=== PATIENT | female | born 1975 | race Caucasian/White ===

== ENCOUNTER 2019-12-26 13:42 | Emergency (ER) | payer OTHER, SELFPAY ==
--- NOTE | 2019-12-26 13:45 | ED.GENADULT ---
HPI - General Adult General Chief complaint: Ear Stated complaint: right ear pain Time Seen by Provider: 12/26/19 14:10 Source: patient Mode of arrival: ambulatory Limitations: no limitations History of Present Illness HPI narrative: 44-year-old female patient [facility] with complaints of right ear pain and decreased hearing for the past 2 days. Patient denies any fevers, runny nose, stuffy nose, coughing, chest pain, shortness breath, abdominal pain, nausea, vomiting or diarrhea. Patient denies taking anything for her symptoms so far. Related Data Home Medications Medication Instructions Recorded Confirmed aripiprazole 2 mg PO DAILY 12/26/19 12/26/19 hydroxyzine HCl 25 mg PO BID 12/26/19 12/26/19 propranolol 60 mg PO Q12H 12/26/19 12/26/19 sertraline 150 mg PO DAILY 12/26/19 12/26/19 Allergies Allergy/AdvReac Type Severity Reaction Status Date / Time cephalexin AdvReac Unknown Nausea and Verified 12/26/19 13:57 Vomiting Review of Systems Review of Systems: Narrative: CONSTITUTIONAL: Denies fever, chills, or sweats. EYES: Denies visual changes, redness, or discharge. ENT: Denies rhinorrhea, congestion, sore throat, positive right otalgia. CARDIOVASCULAR: Denies chest pain, palpitations, or edema. RESPIRATORY: Denies cough or dyspnea. GASTROINTESTINAL: Denies abdominal pain, nausea, vomiting, or diarrhea. GENITOURINARY: Denies dysuria or hematuria. SKIN: Denies rash or itching. MUSCULOSKELETAL: Denies back pain, joint pain, or myalgia. NEUROLOGIC: Denies headache, numbness, or weakness. PSYCHIATRIC: Denies anxiety or depression. PMFSH Comments At the time of my signature I agree with nursing past medical history, surgical, social, and family history. There is no relevant family history pertinent to the presenting complaint. Exam Narrative: Exam Narrative: GENERAL: Well-appearing, well-nourished, and in no acute distress. HEAD: Normocephalic, atraumatic. EYES: PERRLA and EOMI. ENT: Nares with erythema and edema noted bilaterally with the left nare swollen shut, no rhinorrhea or epistaxis. Mucous membranes moist. Right ear has some erythema noted to the TM. No foreign bodies noted to the canal. Posterior pharynx no erythema, tonsillar margin, exudates or lesions present. NECK: Supple. No lymphadenopathy CHEST: Clear to auscultation. No respiratory distress. HEART: Regular rate and rhythm. No murmur heard. Normal peripheral pulses. ABDOMEN: Soft, nontender, nondistended, normal active bowel sounds. EXTREMITIES: Normal range of motion. No edema. SKIN: Warm, dry, no rash. NEURO: No focal deficits. Alert and oriented x3. Course Vital Signs Vital signs: Vital Signs Temperature 36.6 C 12/26/19 13:52 Pulse Rate 76 12/26/19 13:52 Respiratory Rate 16 12/26/19 13:52 Blood Pressure 124/74 12/26/19 13:52 Pulse Oximetry 99 12/26/19 13:52 Temperature 36.6 C 12/26/19 13:52 Pulse Rate 76 12/26/19 13:52 Respiratory Rate 16 12/26/19 13:52 Blood Pressure 124/74 12/26/19 13:52 Pulse Oximetry 99 12/26/19 13:52 Medical Decision Making Differential Diagnosis Differential Diagnosis: Differential diagnosis: Otitis media, otitis externa, perforated TM, infection of the outer ear, foreign body or cerumen impaction, ruptured TM, acute mastoiditis, ligament otitis externa, dehydration, pneumonia, sepsis, dental or intraoral infection, TMJ dysfunction Discussed with patient it looks like that she has beginnings of an ear infection to the right ear which is most likely causing her symptoms. Discussed with her that this could be due to clogged sinuses due to the fact that her nares do appear slightly swollen. Notify patient that I will discharge her home with an antibiotic for the ear infection but she should also be taking some to antihistamine such as Natasha, Zyrtec or Claritin as well as Flonase for her symptoms as well to decrease risk of ear infection in the future.
[2019-12-26 13:52] VITALS: BP 124/74; PULSE 76; RESP 16; TEMP 36.6; O2SAT 99
== END 2019-12-26 14:20 | disposition home or self-care (01) ==
PROVIDERS: Emergency Provider Nurse Practitioner Family
DX: H66.91 Otitis media, unspecified, right ear (principal); J30.9 Allergic rhinitis, unspecified; F41.9 Anxiety disorder, unspecified; F32.9 Major depressive disorder, single episode, unspecified
CPT/HCPCS: 99213; G0463

== ENCOUNTER 2022-10-10 16:39 | Emergency (ER) | payer OTHER, SELFPAY ==
[2022-10-10 16:47] VITALS: BP 117/68; PULSE 67; RESP 16; TEMP 36.7; O2SAT 97
--- NOTE | 2022-10-10 16:51 | ED.URI ---
HPI - URI/Sore Throat General Chief Complaint: Upper Respiratory Infection Stated Complaint: sore throat and right ear Time Seen by Provider: 10/10/22 16:51 Source: patient and RN notes reviewed History of Present Illness HPI Narrative: patient is a 46-year-old female who presents to urgent care with complaints of right otalgia and sore throat. Patient states that she has had some ringing and muffled miss and the right ear. Patient states it started 1 week ago and did initially have a fever. Patient has been fever free for the last 7 days. States her 3-year-old grandson was seen in the emergency room today for an upper respiratory virus . He had no diagnoses that required antibiotics. Patient has been using Tylenol. No other acute complaints. No acute distress noted. Patient aware of the plan of care. Some parts of this dictation were generated by voice recognition software and may contain typographical and/or grammatical inaccuracies. Related Data Home Medications Medication Instructions Recorded Confirmed hydroxyzine HCl 25 mg tablet 25 mg PO BID 12/26/19 12/26/19 propranolol 60 mg tablet 60 mg PO Q12H 12/26/19 12/26/19 sertraline 100 mg tablet 150 mg PO DAILY 12/26/19 12/26/19 Allergies Allergy/AdvReac Type Severity Reaction Status Date / Time cephalexin AdvReac Unknown Nausea and Verified 10/10/22 16:53 Vomiting Review of Systems Review of Systems: CONSTITUTIONAL: Denies fever, chills, or sweats. EYES: Denies visual changes, redness, or discharge. ENT: reports right otalgia and sore throat CARDIOVASCULAR: Denies chest pain, palpitations, or edema. RESPIRATORY: Denies cough or dyspnea. GASTROINTESTINAL: Denies abdominal pain, nausea, vomiting, or diarrhea. GENITOURINARY: Denies dysuria or hematuria. SKIN: Denies rash or itching. MUSCULOSKELETAL: Denies back pain, joint pain, or myalgia. NEUROLOGIC: Denies headache, numbness, or weakness. All other systems reviewed are negative, except as documented in HPI. PMFSH Comments At the time of my signature, I reviewed and agree with the nursing past medical, surgical, social, and family history. There is no relevant family history pertinent to the patient complaint. Exam Narrative: GENERAL: This is a well-nourished, well-developed patient, in no apparent distress. HEAD: normocephalic, atraumatic. EYES: PERRL. Sclera clear/white. Vision is grossly intact. EARS: External ears normal, auditory canals clear and without drainage, mild bilateral eustachian tube dysfunction without otitis.TMs normal without perforation. Hearing grossly intact. NOSE: External nose normal with no obvious nasal discharge, nares without redness, no rhinorrhea. THROAT: Mucous membranes moist, posterior pharynx clear. Moderate postnasal drainage NECK: Neck supple, non-tender without lymphadenopathy CARDIOVASCULAR: Regular rate and rhythm without murmurs, gallops, or rubs. RESPIRATORY: Clear to auscultation. Breath sounds equal bilaterally. No wheezes, rales, or rhonchi. SKIN: warm, intact with no suspicious lesions or rash, good texture and turgor. NEURO: awake, alert, and oriented to person, place and time. There were no obvious focal neurologic abnormalities. EXTREMITIES: No clubbing, cyanosis, or edema. Course Course Level of Care: Express Care Visit Vital Signs Vital signs: Vital Signs Temperature 98.0 F 10/10/22 16:47 Pulse Rate 67 10/10/22 16:47 Respiratory Rate 16 10/10/22 16:47 Blood Pressure 117/68 10/10/22 16:47 Pulse Oximetry 97 10/10/22 16:47 Oxygen Delivery Room Air 10/10/22 16:47 Temperature 98.0 F 10/10/22 16:47 Pulse Rate 67 10/10/22 16:47 Respiratory Rate 16 10/10/22 16:47 Blood Pressure 117/68 10/10/22 16:47 Pulse Oximetry 97 10/10/22 16:47 Oxygen Delivery Room Air 10/10/22 16:47 reviewed MDM - URI/Sore Throat MDM Narrative Medical decision making narrative: Advised patient to take a daily Zyrtec or Clar
== END 2022-10-10 17:11 | disposition home or self-care (01) ==
PROVIDERS: Emergency Provider Nurse Practitioner Family; PCP Family Medicine
DX: H93.11 Tinnitus, right ear (principal); F41.9 Anxiety disorder, unspecified; F32.A Depression, unspecified; R73.03 Prediabetes; Z90.711 Acquired absence of uterus with remaining cervical stump
CPT/HCPCS: 99211; G0463

== ENCOUNTER 2023-08-08 13:26 | Emergency (ER) | payer OTHER, SELFPAY ==
[2023-08-08 13:35] VITALS: BP 117/83; PULSE 77; RESP 16; TEMP 36.5; O2SAT 98
--- NOTE | 2023-08-08 13:41 | ED.SKABFB ---
HPI - Skin/Abscess/Foreign Bdy General Chief complaint: Skin/Abscess/Foreign Body Stated complaint: wound on right butt cheek Time Seen by Provider: 08/08/23 13:26 Source: patient Mode of arrival: ambulatory Limitations: no limitations History of Present Illness HPI narrative: Giselle is a 47-year-old female patient presenting to the clinic today with complaints of a wound to the right by cheek. She reports that this been going on for a couple days. States she is having pain to the wound. States she was concerned that it may have been shingles however it is not spread. Wound is scabbed over and painful. No fever or chills. Related Data Home Medications Medication Instructions Recorded Confirmed hydroxyzine HCl 25 mg tablet 25 mg PO BID 12/26/19 08/08/23 propranolol 60 mg tablet 60 mg PO Q12H 12/26/19 08/08/23 sertraline 100 mg tablet 150 mg PO DAILY 12/26/19 10/10/22 Allergies Allergy/AdvReac Type Severity Reaction Status Date / Time cephalexin AdvReac Unknown Nausea and Verified 08/08/23 13:42 Vomiting Review of Systems Review of Systems: Pertinent positives per HPI. Patient denies any fever, chills, rash, headache, visual changes, dizziness, cough, runny nose, sore throat, shortness of breath, chest pain, palpitations, nausea, vomiting, diarrhea, constipation, abdominal pain, or any urinary issues. PMFSH Comments At the time of my signature, I reviewed and agree with the nursing past medical, surgical, social, and family history. There is no relevant family history pertinent to the patient complaint. Exam Narrative: General: Well-developed, well nourished, in no apparent distress Head: Normocephalic, atraumatic. Cardio: Regular rate and rhythm, s1 and s2 normal, no murmur appreciated. Resp: Clear to auscultation bilaterally, no rhonchi, rales, wheezing or rubs. Integumentary: [place], warm, and dry, half dollar size redness with scabbed center with yellow crusting, tender to palpation with mild induration Course Course Emergency Course: Portions of this record may have been created with voice recognition software. Level of Care: Express Care Visit Vital Signs Vital signs: Vital Signs Temperature 36.5 C 08/08/23 13:35 Pulse Rate 77 08/08/23 13:35 Respiratory Rate 16 08/08/23 13:35 Blood Pressure 117/83 08/08/23 13:35 Pulse Oximetry 98 08/08/23 13:35 Oxygen Delivery Room Air 08/08/23 13:35 Temperature 36.5 C 08/08/23 13:43 Pulse Rate 77 08/08/23 13:43 Respiratory Rate 16 08/08/23 13:43 Blood Pressure 117/83 08/08/23 13:43 Pulse Oximetry 98 08/08/23 13:43 Oxygen Delivery Room Air 08/08/23 13:43 Vital signs reviewed MDM - Skin/Abscess/Foreign Bdy MDM Narrative Medical decision making narrative: At the time of visit patient is resting comfortably on the exam table. I suspect patient may have a bacterial skin infection to the right buttock. Prescription for mupirocin cream and doxycycline was sent to the pharmacy and supportive measures were discussed with the patient she voiced understanding discharge instructions and agrees to treatment plan. Differential Diagnosis Differential diagnosis: Likely abscess of skin or subcutaneous tissue, viral exanthem, dermatophytosis, urticaria, herpes zoster, cellulitis, eczema, insect bites, impetigo and contact dermatitis Discharge Plan Discharge Clinical Impression: Bacterial infection of skin Patient Disposition: Home, Self-Care Condition: Stable Instructions: Antibiotic Form, Wound Infection (ED) Additional Instructions: Apply mupirocin cream to the affected area twice daily x7 days Take doxycycline as prescribed Keep wound clean and dry Watch for signs and symptoms of infection- redness, streaking, swelling, purulent discharge, or increase in pain. Follow up with your PCP for suture removal or return to the Express care. Prescriptions: New doxycycline hyclate 100 mg capsule
[2023-08-08 13:43] VITALS: BP 117/83; PULSE 77; RESP 16; TEMP 36.5; O2SAT 98
== END 2023-08-08 13:56 | disposition home or self-care (01) ==
PROVIDERS: Emergency Provider Nurse Practitioner Family
DX: L08.9 Local infection of the skin and subcutaneous tissue, unspecified (principal); B96.89 Other specified bacterial agents as the cause of diseases classified elsewhere; R73.03 Prediabetes; Z90.711 Acquired absence of uterus with remaining cervical stump; F41.9 Anxiety disorder, unspecified
CPT/HCPCS: 99213; G0463

== ENCOUNTER 2025-09-10 14:25 | Emergency (ER) | payer OTHER, SELFPAY ==
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
--- OUTSIDE RECORDS SUMMARY | 2025-09-10 14:28 | XMS_ITS | Encounter Summary ---
Author Organization [facility] Address [address] [place] [address] Phone Care Team Providers Care Logging Truck Driver Name Role Phone Neli Luis Primary Care Provider + Princess Washington MD Unavailable + [phone] Trip Lofton MD Unavailable Reason for Visit * Reason Comments Medication Refill Encounter Details Date Type Department Care Team (Late st Contact Info) Description 12/03/2023 Refill [facility] - [facility] [address] [place] [address] Neli Luis PAC [address] [place] [address] Medication Refill Social History Tobacco Use Types Packs/Day Years Used Date Smoking Tobacco: Never Smokeless Tobacco: Never Alcohol Use Standard Drinks/Week Comments Never 0 (1 standard drink = 0.6 oz pur e alcohol) Sexually Active Control Partners Comments Yes Male Comments Unknown Sex and Gender Information Value Date Recorded Sex Assigned at Female 10/05/2023 2:47 AM CREATIVE PERFUMER Legal Sex Female 9:41 AM CREATIVE PERFUMER Gender Identity Female 10/05/2023 2:47 AM CREATIVE PERFUMER Sexual Orientation Straight 10/05/2023 2: 47 AM CREATIVE PERFUMER documented as of this encounter Miscellaneous Notes * Telephone Encounter - Sara Sanchez RN - 12/03/2023 1:57 PM CDT Propranolol 60 mg is also on med list from 2019 - if this is not current, please discontinue. Per nursing clinical judgement, provider to review and approve the medication(s) order(s) if appropriate. Requested Prescriptions Pending Prescriptions Disp Refills propranolol (INDERAL) 40 MG Tablet [Pharmacy Med Name: PROPRANOLOL HCL 40MG TABS] 180 Tablet 0 Sig: TAKE ONE TABLET BY MOUTH EVERY MORNING AND AT BEDTIME Beta-Blockers Protocol Passed - 12/03/2023 10:19 AM Passed - BP on record in the past year Clinician-entered: BP Readings from Last 3 Encounters: 09/30/23 112/76 11/07/18 110/60 Patient-entered: No data recorded Passed - Visit with relevant provider in past 12 months or upcoming 90 days Recent Visits Date Type Provider Dept 09/30/23 Office Visit Neli Luis PAC [facility] Showing recent visits within past 365 days and meeting all other requirements Future Appointments No visits were found meeting these conditions. Showing future appointments within next 90 days and meeting all other requirements documented in this encounter Plan of Treatment Upcoming Encounters Date Type Department Care Team (Late st Contact Info) Description 10/04/2025 4:40 PM CREATIVE PERFUMER Office Visit [facility] - Family Medicine [facility] [address] [place] [address] Neli Luis PAC [address] [place] [address] documented as of this encounter Visit Diagnoses Not on filedocumented in this encounter Additional Health Concerns Infection Onset Date Last Indicated Resolved Time Respiratory Rule-Out 12/27/2023 12/27/2023 024 5:36 PM CDT COVID - 19 12/27/2023 12/27/2023 12/27/2023 5:33 PM CDT documented as of this encounter Care Teams Logging Truck Driver Relationship Specialty Start Date End Date Neli Luis PAC [address] [place] [address] PCP - General Physician Can Line Operator 09/30/23 Princess Washington MD [address] [place] [address] Family Medicine 09/30/23 Trip Lofton MD [address] [address] Consulting Physician Colon and Rectal Surgery 10/22/23 documented as of this encounter
--- OUTSIDE RECORDS SUMMARY | 2025-09-10 14:28 | XMS_ITS | Encounter Summary ---
Author Organization [facility] Address [address] [place] [address] Phone Care Team Providers Care Plumber Maintenance Name Role Phone Neli Luis Primary Care Provider + Princess Washington MD Unavailable [phone] Trip Lofton MD Unavailable Encounter Details Date Type Department Care Team (Late st Contact Info) Description 06/08/2025 Telephone [facility] Mammography [address] [place] [address] Neli Luis, PAC [address] [place] [address] Social History Tobacco Use Types Packs/Day Years Used Date Smoking Tobacco: Never Smokeless Tobacco: Never Alcohol Use Standard Drinks/Week Comments Never 0 (1 standard drink = 0.6 oz pur e alcohol) PHQ-2 Answer Date Recorded Total Score - Questions 1-9 0 09/0 11/2024 Sexually Active Control Partners Comments Yes Male Comments Unknown Sex and Gender Information Value Date Recorded Sex Assigned at Female 10/05/2023 2:47 AM TREASURY CONSULTANT Legal Sex Female 9:41 AM TREASURY CONSULTANT Gender Identity Female 10/05/2023 2:47 AM TREASURY CONSULTANT Sexual Orientation Straight 10/05/2023 2: 47 AM TREASURY CONSULTANT documented as of this encounter Miscellaneous Notes * Telephone Encounter - Ximena Yang RMA - 06/08/2025 9:11 AM CDT Patient is going to [facility] to have her mammogram as we cannot schedule here at this time. Orders have been faxed, her imaging is already there at that facility to compare. documented in this encounter Plan of Treatment Upcoming Encounters Date Type Department Care Team (Late st Contact Info) Description 10/04/2025 4:40 PM TREASURY CONSULTANT Office Visit [facility] - Family Medicine - [place] [facility] [address] [place] [address] Neli Luis PAC [address] [place] [address] documented as of this encounter Visit Diagnoses Not on filedocumented in this encounter Additional Health Concerns Assessment Noted Time PHQ-9 Depression Total Score: 0 05/25/20 25 9:34 AM CDT documented as of this encounter Care Teams Plumber Maintenance Relationship Specialty Start Date End Date Neli Luis PAC [address] [place] [address] PCP - General Physician Construction Controller 09/30/23 Princess Washington MD [address] [place] [address] [address] [place] [address] Family Medicine 09/30/23 Trip Lofton MD [address] [facility] [address] [place] [address] Consulting Physician Colon and Rectal Surgery 10/22/23 documented as of this encounter
--- OUTSIDE RECORDS SUMMARY | 2025-09-10 14:28 | XMS_ITS | Clinical Summary ---
Author Organization [facility] Address [address], [facility] [address] Phone Care Team Providers Care Catalyst Plant Supervisor Name Role Phone Neli Luis FERMIN Primary Care Provider + Princess Washington MD Unavailable + [phone] Trip Lofton MD Unavailable Allergies Active Allergy Reactions Criticality Noted Date Comments Cephalexin Vomiting 11/07/2018 Medications sertraline (ZOLOFT) 100 MG Tablet Patient takes 200mg twice a day 4 Active ibuprofen (MOTRIN) 800 MG Tablet Take 800 mg by mouth every 6 hours. Active hydrOXYzine (VISTARIL) 50 MG Capsule Take 1 Capsule by mouth in the morning and at bedtime. 180 Capsule 1 4 Active propranolol (INDERAL) 40 MG Tablet Take 1 Tablet by mouth 2 times daily. 180 Tablet 1 5 Active ondansetron (ZOFRAN-ODT) 8 MG TABLET DISPERSIBLE Take 1 Tablet by mouth every 8 hours as needed for Nausea - 1st line. 15 Tablet 5 Active Blood Glucose Monitoring Suppl DeviceIndicatio ns:Type 2 diabetes mellitus without complication, without long-term current use of insulin Diagnosis: Diabetes type 2 Blood testing frequency: once a day 1 Each 5 Active Lancets MiscIndications :Type 2 diabetes mellitus without complication, without long-term current use of insulin Once daily 100 Lancet . 10/02/202 5 Active glucose blood (Glucose Meter Test) StripIndication s:Type 2 diabetes mellitus without complication, without long-term current use of insulin Test once daily 90 Strip 3 Active Dulaglutide (Trulicity) 1.5 MG/0.5ML Solution Auto-injectorIn dications:Type 2 diabetes mellitus without complication, without long-term current use of insulin 1.5 mg by Subcutaneous route once a week. 2 mL Active Active Problems Problem Noted Date Diagnosed Date Type 2 diabetes mellitus wit hout complication, without long-term current use of insulin 06/23/2025 Encounters Date Type Department Care Team Description 06/23/2025 4:40 PM CDT Office Visit [facility] [address] [place] [address] Neli Luis, FERMIN Type 2 diabetes mellitus without complication, without long-term current use of insulin (Primary Dx) Discharge Disposition: Discharged to home or Selfcare 06/23/2025 Travel from Last 3 Months Immunizations Immunization Administration Dates Next Due Influenza Vaccine, Quadrivalent, PF 07/17/2018 Influenza, Injectable, Quadrivalent 10/10/2016 TDAP Vaccine 06/01/2024 Family History Medical History Relation Name Comments Cirrhosis Father Leukemia/Lymphoma Father Breast Cancer Maternal Aunt Breast Cancer Paternal Grandmother Relation Name Status Comments Father Maternal Aunt Alive Mother Alive Paternal Grandmother Social History Tobacco Use Types Packs/Day Years Used Date Smoking Tobacco: Never Smokeless Tobacco: Never Tobacco Cessation:Counseling Given: Not Answered Alcohol Use Standard Drinks/Week Comments Never 0 (1 standard drink = 0.6 oz pur e alcohol) PHQ-2 Answer Date Recorded Total Score - Questions 1-9 0 09/0 11/2024 Sexually Active Control Partners Comments Yes Male Comments Unknown Sex and Gender Information Value Date Recorded Sex Assigned at Female 10/05/2023 2:47 AM DATA INTEGRATION ANALYST Legal Sex Female 9:41 AM DATA INTEGRATION ANALYST Gender Identity Female 10/05/2023 2:47 AM DATA INTEGRATION ANALYST Sexual Orientation Straight 10/05/2023 2: 47 AM DATA INTEGRATION ANALYST Last Filed Vital Signs Vital Sign Reading Time Taken Comments Blood Pressure 118/70 06/23/2025 4:25 PM CDT Pulse 83 06/23/2025 4:25 PM CDT Temperature 36.6 C (97.8 F) 06/23/2025 4:25 PM CDT Respiratory Rate 18 06/01/2024 3:47 PM CDT Oxygen Saturation 96% 06/23/2025 4:25 PM CDT Inhaled Oxygen Concentration - - Weight 106.6 kg (235 lb) 06/23/2025 4:25 PM CDT Height 172.7 cm (5' 8) 06/23/2025 4:25 PM CDT Body Mass Index 35.73 06/23/2025 4:25 PM CDT Plan of Treatment Upcoming Encounters Date Type Department Care Team (Late st Contact Info) Description 10/04/2025 4:40 PM DATA INTEGRATION ANALYST Office Visit [facility] [address] [place] [address] Neli Luis, FERMIN [address] [place] [address] Health Maintenance Due Date Last Done Comments Diabetes: Eye Exam 1975 Diabetes: Foot Exam 1975 Hepatitis B Immunization (1 of 3 - 19+ 3-dose series) 12/10/1994 Pneumococcal Immunization Combined (1 of 2 - PCV) 12/10/1994 Mammogram 02/21/2019 02/21/2018 Cologuard 12/10/2020 Colonoscopy 12/10/2020 Colorectal Cancer Screening 12/10/2020 Immunochemical Fecal Occult Blood 12/10/2020 Influenza Immunization (#1) 05/23/202506/23, 10/10/2016 SARS-COV-2 Immunization ( season) 2025 Diabetes: Hemoglobin A1c 11/22/2025 025, 06/01/2024, 09/30/2023 Diabetes: Nephropathy Screening 05/25/2026 05/25/2025, 06/01/2024, 09/30/2023 Td Immunization Every 10 Yea rs (Adults With 1 Tdap) 06/01/2034 06/01/2024 Respiratory Syncytial Virus (RSV) Immunization (Adult) (1 - 1-dose 75+ series) 12/10/2050 Discussion re Starting/Frequency of Mammograms Completed 02/21/2018 Hepatitis C Virus (HCV) Screening Completed 09/30/2023 DTaP/Tdap/Td Immunization Discontinued 06/01/2024 TdaP Immunization Discontinued 06/01/2024 Human Papillomavirus (HPV) Immunization (No Doses Required) Completed Meningococcal Immunization (ACWY) Aged Out No longer eligible based on patient's age to complete this topic Rotavirus Immunization Aged Out No lo nger eligible based on patient's age to complete this topic Procedures Procedure Name Priority Date/Time Associated Diagnosis Comments CMP (COMPREHENSIVE METABOLIC PANEL) Routine 05/25/2025 10:31 AM CDT Well adult exam HEMOGLOBIN A1C W/ ESTIMATED GLUCOSE Routine 05/25/2025 10:31 AM CDT Elevated glucose HEPATITIS C ANTIBODY Routine 09/30/2023 11:10 AM DATA INTEGRATION ANALYST Encounter for hepatitis C screening test for low risk patient from Last 3 Months or Most Recently Relevant to Health Maintenance Results * (ABNORMAL) HEMOGLOBIN A1C W/ ESTIMATED GLUCOSE (05/25/2025 10:31 AM CDT) HGB-A1C 6.5(H) 4.0 - 6.0 % 05/25/2025 11:01 AM CDT [facility] Est Average Glucose 139.9 mg/dL 05/25/2025 11:01 AM CDT [facility] Blood Venipuncture / Unknown 05/25/2025 10:31 AM CDT 05/25/2025 10:41 AM CDT Narrative [facility] - 05/25/2025 11:01 AM CDT HEMOGLOBIN A1C: DIABETIC PATIENTS: WELL-CONTROLLED: 6.2 - 7.0 INTERMEDIATE WELL-CONTROLLED: 7.0 - 9.0 POORLY-CONTROLLED: >9.0 Specimens containing greater than 5% of Hemoglobin F may result in lower than expected % HbA1C results. us Neli Luis PAC CHEMISTRY ORDERABLES Fin al Result [facility] [address] [place] [address] * (ABNORMAL) CMP (COMPREHENSIVE METABOLIC PANEL) (05/25/2025 10:31 AM CDT) SODIUM 140 136 - 145 mmol/L 05/25/2025 11:56 AM CDT [facility] POTASSIUM 4.4 3.5 - 5.1 mmol/L 05/25/2025 11:56 AM CDT [facility] CHLORIDE 103 98 - 107 mmol/L 05/25/2025 11:56 AM CDT [facility] CO2, VENOUS 28 22 - 30 mmol/L 05/25/2025 11:56 AM CDT [facility] ANION GAP 13.4 <18.0 mmol/L 05/25/2025 11:56 AM CDT [facility] GLUCOSE 113(H) 70 - 99 mg/dL 05/25/2025 11:56 AM CDT [facility] BUN 17 5 - 18 mg/dL 05/25/2025 11:56 AM CDT [facility] CREATININE, BLOOD 0.72 0.60 - 1.00 mg/dL 05/25/2025 11:56 AM CDT [facility] BUN/CREATININE RATIO 24(H) 12 - 20 ratio 05/25/2025 11:56 AM CDT [facility] TOTAL PROTEIN 7.3 6.0 - 8.0 g/dL 05/25/2025 11:56 AM CDT [facility] ALBUMIN 4.4 3.5 - 5.0 g/dL 05/25/2025 11:56 AM CDT [facility] A/G RATIO 1.5 1.0 - 2.2 05/25/2025 11:56 AM CDT [facility] CALCIUM 9.2 8.7 - 10.5 mg/dL 05/25/2025 11:56 AM CDT [facility] T BILI 0.4 0.2 - 1.2 mg/dL 05/25/2025 11:56 AM CDT [facility] SGOT (AST) 36 <43 U/L 05/25/2025 11:56 AM CDT [facility] SGPT (ALT) 52 <56 U/L 05/25/2025 11:56 AM CDT [facility] ALKALINE PHOSPHATASE 78 40 - 150 U/L 05/25/2025 11:56 AM CDT [facility] IS THE PATIENT REQUIRED TO BE FASTING? No 05/25/2025 11:56 AM CDT [facility] GFR, ESTIMATED >60 >=60 05/25/2025 11:56 AM CDT [facility] Comment: Creatinine Clearance is the preferred criteria for selecting drug dose adjustments in renally impaired patients. The GFR is provided as additional pertinent clinical information. GFR is reported in mL/min/1.73 sq m. Calculation based on the 2020 Chronic Kidney Disease Epidemiology Collaboration (CKD-EPI) equation refit without adjustment for race. GFR, EST. >60 >=60 025 11:56 AM CDT [facility] Comment: Creatinine Clearance is the preferred criteria for selecting drug dose adjustments in renally impaired patients. The GFR is provided as additional pertinent clinical information. GFR is reported in mL/min/1.73 sq m. Calculation based on the 2009 Chronic Kidney Disease Epidemiology Collaboration (CKD-EPI). GFR, EST. NONAFRICAN >60 >=60 05/25/2025 11:56 AM CDT [facility] Comment: Creatinine Clearance is the preferred criteria for selecting drug dose adjustments in renally impaired patients. The GFR is provided as additional pertinent clinical information. GFR is reported in mL/min/1.73 sq m. Calculation based on the 2009 Chronic Kidney Disease Epidemiology Collaboration (CKD-EPI). Blood Venipuncture / Unknown 05/25/2025 10:31 AM CDT 05/25/2025 10:40 AM CDT us Neli Luis PAC CHEMISTRY ORDERABLES Fin al Result [facility] [address] [facility] [address] * HEPATITIS C ANTIBODY (09/30/2023 11:10 AM DATA INTEGRATION ANALYST) hepatitis C antibody 0.16 <1 S/CO [facility] ARCH [id number] B 09/30/2023 9:52 PM DATA INTEGRATION ANALYST [facility] Comment: Signal/Cutoff ratio < 0.79 is Nondetected Signal/Cutoff ratio 0.80-0.99 is Grayzone Signal/Cutoff ratio > 0.99 is Detected Supplemental assays are recommended if signal/cutoff ratio is >/=1.00. Signal/cutoff ratio result >/= 5.00 is 97% predictive of positivity for recombinant immunoblot assay (RIBA) and will be reported to the [place] Department of Public [facility] as required. Blood Venipuncture / Unknown 09/30/2023 11:10 AM DATA INTEGRATION ANALYST 09/30/2023 11:11 AM DATA INTEGRATION ANALYST us Neli Luis PAC CHEMISTRY ORDERABLES Fin al Result [facility] [address] [place] [address], from Last 3 Months or Most Recently Relevant to Health Maintenance Insurance MEDICAID [employer] Care Teams Catalyst Plant Supervisor Relationship Specialty Start Date End Date Neli Luis PAC [address] [place] [address] PCP - General Physician Patient Resource Coordinator 09/30/23 Princess Washington MD [address] [place] [address] [address] [place] [address] Family Medicine 09/30/23 Trip Lofton MD [address] [address] Consulting Physician Colon and Rectal Surgery 10/22/23
[2025-09-10 14:30] VITALS: BP 122/76; PULSE 86; RESP 16; TEMP 36.6; O2SAT 100
--- NOTE | 2025-09-10 15:00 | ED.URI ---
HPI - URI/Sore Throat General Chief Complaint: Upper Respiratory Infection Stated Complaint: Ear Pain/Cough/Body Aches/Fever Time Seen by Provider: 09/10/25 15:00 Source: patient, RN notes reviewed and old records reviewed Mode of arrival: ambulatory Limitations: no limitations History of Present Illness HPI Narrative: 49 year old female who presents to [facility] care with co plaints of illness for about 1.5 weeks which includes cough with some wheezing, fevers,body aches, and sore throat with nasal drainage and ear pain bilaterally. Patient reports that she has been taking Tylenol for her symmptoms MD elicited complaint: cough, sore throat, rhinorrhea, nasal congestion and other (ear pain) Onset (ago): week(s) (1.5) Pain scale (0-10): 8 Able to tolerate fluids by mouth: Yes Treatments prior to arrival: acetaminophen Related Data Home Medications ?Medication ?Instructions ?Recorded ?Confirmed ?Last Taken ?Type hydroxyzine HCl 25 mg tablet 25 mg PO BID 12/26/19 09/10/25 Unknown History propranolol 60 mg tablet 60 mg PO Q12H 12/26/19 09/10/25 Unknown History sertraline 100 mg tablet 150 mg PO DAILY 12/26/19 10/10/22 Unknown History hydroxyzine pamoate 50 mg capsule mg 09/10/25 Unknown History propranolol 40 mg tablet mg 09/10/25 Unknown History Allergies Allergy/AdvReac Type Severity Reaction Status Date / Time cephalexin AdvReac Unknown Nausea and Verified 09/10/25 14:54 Vomiting Review of Systems Review of Systems: CONSTITUTIONAL: Report malaise, chills, sweats, or fever. EYES: Denies visual changes, redness, or discharge. ENT: Reports rhinorrhea, congestion, sinus pain, positive otalgia and sore throat. CARDIOVASCULAR: Denies chest pain, palpitations, or edema. RESPIRATORY: Reports cough and wheezing? Denies dyspnea. GASTROINTESTINAL: Denies abdominal pain, nausea, vomiting, diarrhea SKIN: Denies rash or itching. MUSCULOSKELETAL: positive myalgia. NEUROLOGIC: Positive headache. All systems reviewed & are unremarkable except as noted in HPI and below PMFSH Past Medical History Medical History Borderline diabetes Migraine Anxiety and depression Surgical History Surgical History History of tonsillectomy and adenoidectomy Hx of cholecystectomy History of partial hysterectomy History of appendectomy Social History Social History Additional smoking assessment comments: reports no tobacco use Alcohol intake: current Alcohol use details: rare Substance use type: does not use Living arrangements: with family Gender identity (if verbalized by the patient): Female Comments At time of signature, agree with nursing past medical, surgical, social and family history. There is no relevant family history pertinent to the presenting complaint Exam Narrative: GENERAL: Well-appearing, well-nourished, and in no acute distress. HEAD: Normocephalic EYES: PERRLA, conjunctivae clear ENT: Nares clear, turbinates edematous and erythematous, clear discharge. headache Mucous membranes moist.Bilateral TM red and bulging noted with no drainage from ears. ; no tragal tenderness. Oropharynx erythematous without lesions. Tonsils not present and throat without exudate, no drooling, no hoarseness, no trismus, uvula midline.post nasal drainage NECK: Supple. No lymphadenopathy CHEST: Clear to auscultation, breath sounds equal. No wheezing, rhonchi, rales, or stridor. No respiratory distress, speaks in full sentences.with SAO2 100% no tachypnea noted.cough HEART: Regular rate and rhythm. No murmur heard. SKIN: Warm, dry, no rash. NEURO: Alert and oriented x3. PSYCH: Normal mood and affect Course Course Level of Care: Express Care Visit Vital Signs Vital signs: Vital Signs Temperature 36.6 C 09/10/25 14:30 Pulse Rate 86 09/10/25 14:30 Respiratory Rate 16 09/10/25 14:30 Blood Pressure 122/76 09/10/25 14:30 Pulse Oximetry 100 09/10/25 14:30 Oxygen Delivery Room Air 09/10/25 14:30 Temperature 36.6 C 09/10/25 14:30 Pulse Rate 86 09/10/25 14:30 Respiratory Rate 16 09/10/25 14:30 Blood Pressure 122/76 09/10/25 14:30 Pulse Oximetry 100 09/10/25 14:30 Oxygen Delivery Room Air 09/10/25 14:30 reviewed [facility] Narrative Medical decision making narrative: Patient with 1.5 weeks of illness with bilateral er infection and acute cough, Patient is appropriate for outpatient care and follow up. Patient received anticipatory guidance and reasons to seek care in ED reviewed with understanding voiced. Differential Diagnosis Differential Diagnosis: Differential diagnostic considerations for upper respiratory infection include upper respiratory infection, croup, otitis media, sinusitis, viral infection, bronchitis, influenza, pharyngitis, strep, uvulitis.? Lab Data [facility] Lab Attestation statement: I personally reviewed the patient's lab results. Lab results narrative: covid antigen negative, Influenza A&B negative Labs: Lab Results 09/10/25 Range/Units 15:21 POC Influenza A Ag Negative (Negative) POC Influenza B Ag Negative (Negative) POC SARS CoV-2 Ag Negative (Negative) reviewed Critical Care Time Critical Care Time Critical Care Time: No Discharge Plan Discharge Clinical Impression: Otitis media of both ears, Acute cough Patient Disposition: Home Condition: Stable Instructions: Antibiotic Form, Ear Infection (GEN), Acute Cough (ED) Additional Instructions: Increase fluids especially juices and water [id number] cough and cold medicine of your choice for your symptoms Zyrtec Claritin or Natasha daily include Coricidin brand decongestant Steroids as directed--take with food heat to the face 20-30 minutes 4-6 times a day for pain Salt water gargles, throat lozenges or throat sprays as desired Antibiotic as directed--finished the medication If your symptoms persist, change or worsen significantly before you can contact your personal physician then please, without delay, go to the emergency department for further evaluation. Follow-up with PCP in 7-10 days or sooner if needed Patient Language: Sami Prescriptions: New amoxicillin-pot clavulanate 875-125 mg tablet 1 tablet PO Q12H Qty: 20 0RF prednisone 20 mg tablet 40 mg PO DAILY 5 Days Qty: 10 0RF No Action sertraline 100 mg Tablet 150 mg PO DAILY hydroxyzine HCl 25 mg Tablet 25 mg PO BID propranolol 60 mg Tablet 60 mg PO Q12H hydroxyzine pamoate 50 mg capsule propranolol 40 mg tablet Follow-up/Referrals: Toby,MAIRA Henriquez [Primary Care Provider, Unknown] Time of Disposition: 15:25 Quality [place] Coma Scale Eyes: Open Verbal: Oriented and Alert Motor: Follows Commands Ramona Coma Total Score: 15
[2025-09-10 15:23] LABS: EDCOVIDSCREEN Negative (Negative); EDINFLUASCREEN Negative (Negative); EDINFLUBSCREEN Negative (Negative)
== END 2025-09-10 15:26 | disposition home or self-care (01) ==
PROVIDERS: Emergency Provider Registered Nurse; PCP Physician Assistant
DX: H66.93 Otitis media, unspecified, bilateral (principal); R05.1 Acute cough; Z20.822 Contact with and (suspected) exposure to COVID-19; F41.9 Anxiety disorder, unspecified; F32.A Depression, unspecified; Z90.89 Acquired absence of other organs
CPT/HCPCS: 87426; 87804; 99213; G0463